=== PATIENT | female | born 1965 | race Caucasian/White ===

== ENCOUNTER 2019-02-09 12:41 | Day surgery (SDC) | payer BC ==
[2019-02-08 12:43] VITALS: BMI 24.6
[2019-02-09] MEDS ORDERED: ROPIVACAINE HCL 0.5% 30ML VIAL ONE (13:17)
[2019-02-09] MEDS ORDERED: MIDAZOLAM HCL 2 MG/2 ML SINGLE DOSE VIAL ONE ×2 (13:19)
--- NOTE | 2019-02-09 14:25 | HP ---
[facility]ellite [facility] - Chief Complaint Chief Complaint: right shoulder pain - Past Medical History Allergies/Adverse Reactions: Allergies Allergy/AdvReac Type Severity Reaction Status Date / Time Penicillins Allergy Rash Verified 02/08/19 12:35 ...LMP: 01/18/19 - Current Medications Current Medications: Home Medications Medication Instructions Recorded Hydrocodone/Acetaminophen 1 each PO Q6H #30 tablet MDD 4 02/09/19 [Hydrocodone-Acetamin 5-325 mg] Satellite Physical Exam - Physical Examination Vital Signs: Vital Signs Period Temp Pulse Resp BP Sys/Brown Pulse Ox Last 24 Hr 98.6 F-98.6 F 89-89 18-18 129-129/88-88 99 General Appearance: Well Nourished, Well Developed, Alert & Oriented x3 ENT: Clear Lung: Normal air movement Heart: Regular rate & rhythm Extremities: Other (right shoulder- + ttp, decr rom, + neer, + bearden, +obriens , nvi, MRI + labral tear, impingement) Neurological: Intact, Alert, Oriented Satellite Impression/Plan - Impression/Plan Impression: right shoulder impingement, labral tear Operative Procedure: right shoulder arthroscopy with labral repair, KAMLA IRVING Date to be Performed: 02/09/19
[2019-02-09] MEDS ORDERED: DESFLURANE GAS 240 ML BOTTLE IH ONE (15:17)
[2019-02-09] MEDS ORDERED: PROPOFOL 20 ML ONE (15:22)
[2019-02-09] MEDS ORDERED: CLINDAMYCIN PHOSPHATE 600 MG/4 ML VIAL ONE (15:32)
[2019-02-09] MEDS ORDERED: CLINDAMYCIN 600 MG PREMIX BAG IVPB ONE (15:36)
--- NOTE | 2019-02-09 16:19 | OP ---
Operative Note - Note: Operative Date: 02/09/19 ([facility]) Pre-Operative Diagnosis: right shoulder impingement, labral tear, adhesive capsulitis Operation: right shoulder arthroscopy with KAMLA IRVING Post-Operative Diagnosis: Same as Pre-op Surgeon: Pepito Zaman Car Hostler: Ankush Burr Anesthesiologist/PRECISION FARMING COORDINATOR: Charlotte Mathews Anesthesia: General, Local Specimens Removed: shavings Estimated Blood Loss (mls): 5 Operative Report Dictated: Yes
[2019-02-09] MEDS ORDERED: MEPERIDINE HCL 25 MG/ML VIAL IVPUSH ONE (16:41)
[2019-02-09] MEDS ORDERED: ONDANSETRON 4 MG/2 ML VIAL IVPUSH PRN (16:41)
[2019-02-09] MEDS ORDERED: oxyCODONE HCL 5 MG TABLET PO PRN (16:41)
[2019-02-09] MEDS ORDERED: LACTATED RINGERS SOLUTION 1,000 ML IV SCH (16:45)
[2019-02-09 18:48] VITALS: BP 131/78; PULSE 76; TEMP 97.6
--- NOTE | 2019-02-10 07:21 | OP ---
DATE OF OPERATION: 02/09/2019 SURGEON: Pam Nicholas MD NEUROPSYCHIATRIC AIDE: MARÍA Hargrove PREOPERATIVE DIAGNOSIS: Right shoulder adhesive capsulitis, impingement syndrome, possible rotator cuff tear, possible labral tear. POSTOPERATIVE DIAGNOSIS: Right shoulder subacromial impingement and adhesive capsulitis. PROCEDURE: Right shoulder arthroscopy, subacromial decompression and manipulation under anesthesia. DRAINS: None. COMPLICATIONS: None. SPECIMENS: Arthroscopic shavings. BLOOD LOSS: None. BLOOD GIVEN: None. FLUID REPLACEMENT: 500 mL. INDICATIONS: This patient is a 53-year-old female with a preoperative diagnosis of right shoulder impingement syndrome, adhesive capsulitis, possible labral tear, possible rotator cuff tear. After understanding the potential risks, complications, alternatives, and benefits of surgery versus nonsurgical treatment, the patient elected to undergo this procedure. DESCRIPTION OF PROCEDURE: The patient was brought to the operating room, peripheral IV placed, IV sedation given, 600 mg of clindamycin were given. Right interscalene block was performed. LMA anesthesia was induced. She was placed into the beach-chair position with ample padding throughout. I then did a manipulation under anesthesia. The patient was quite stiff. I could only forward flex her and abduct her to about 80 degrees. External rotation was perhaps 15 degrees. Internal rotation was to the center of the chest. I did a manipulation under anesthesia in all planes and could feel multiple releases in multiple planes, after which I could fully forward flex and abduct the arm to over 140 degrees. Internal and external rotation were excellent. Then, the right upper extremity was prepped and draped in a sterile fashion. The bony landmarks were marked out with a marking pen. The posterior portal was established. A diagnostic glenohumeral arthroscopy was performed. As expected, there was some blood inside the shoulder joint from the manipulation under anesthesia, and therefore, under direct visualization using a spinal needle, an anterior portal was established. A Green cannula was introduced and a shaver introduced to remove the bloody debris. I could then directly visualize that there was no labral tear. The area was probed extensively, and no labral tear was identified. The biceps anchor, the biceps tendon both looked good. The glenoid and the humeral head both looked good with no osteoarthritis. The undersurface of the rotator cuff looked good. Some torn capsule was debrided with a straight shaver, but otherwise inside the joint looked quite good. Next, our attention turned to the subacromial space. A lateral portal was established under direct visualization. A Green cannula was introduced into the subacromial space, and using an ArthroCare Wand, an extensive soft tissue debridement was done. After the subacromial and subdeltoid bursectomy, I could then visualize the top surface of the rotator cuff. It seemed to be intact with no tear. The patient had moderate-sized subacromial and small-sized sub distal clavicular spurs, both of which were taken down with a 5.5-mm oval luisana, fine-tuned in reverse, and then, the straight shaver was introduced to fine-tune and further remove all soft tissue and bony debris. I then put the arm through a full range of motion. There were no points of impingement. The top of the rotator cuff was again directly visualized, and no tears were seen. The area was copiously irrigated and washed out. All instrumentation and excess saline were removed. The arthroscopy portals were closed with 3-0 nylon sutures. The area was then washed and dried, covered with Aquacel dressing, and the patient was placed into a sling. Total operative time was about 35 minutes. There were no complications during the case. The patient tolerated the procedure quite well. PAM NICHOLAS M.D. [id number]
== END 2019-02-09 18:40 | disposition home or self-care (01) ==
LOC: JASU-SURG 12:41
PROVIDERS: ATTEND Orthopaedic Surgery
PROC: 0RNJ4ZZ Release Right Shoulder Joint, Percutaneous Endoscopic Approach (ICD-10-PCS; principal; 2019-02-09 14:30)
DX: M75.41 Impingement syndrome of right shoulder (principal); M75.01 Adhesive capsulitis of right shoulder
CPT/HCPCS: 84703

== ENCOUNTER 2019-05-19 04:50 | Day surgery (SDC) | payer BC ==
[2019-05-17 13:06] VITALS: BMI 23.3
[2019-05-19] MEDS ORDERED: ROPIVACAINE HCL 0.5% 30ML VIAL ONE (10:52)
[2019-05-19] MEDS ORDERED: DEXAMETHASONE SOD PHOSPHATE/PF 10 MG/ML SDV ONE (10:52)
[2019-05-19] MEDS ORDERED: MIDAZOLAM HCL 2 MG/2 ML SINGLE DOSE VIAL ONE ×2 (10:53)
--- NOTE | 2019-05-19 10:53 | HP ---
[facility] - Chief Complaint Chief Complaint: right shoulder stiffness - Past Medical History Allergies/Adverse Reactions: Allergies Allergy/AdvReac Type Severity Reaction Status Date / Time Penicillins Allergy Severe Rash, Verified 05/19/19 10:22 dyspnea ...LMP: 05/10/19 ...LMP Comment: heavy - Current Medications Current Medications: Home Medications Medication Instructions Recorded Acetaminophen 650 mg PO PRN PRN 05/17/19 Ibuprofen [Motrin -] 400 mg PO PRN PRN 05/17/19 Hydrocodone/Acetaminophen 1 each PO Q6H #10 tablet MDD 4 05/19/19 [Hydrocodone-Acetamin 5-325 mg] Satellite Physical Exam - Physical Examination Vital Signs: Vital Signs Period Temp Pulse Resp BP Sys/Brown Pulse Ox Last 24 Hr 98.0 F 76 20 112/76 100 General Appearance: Well Nourished, Well Developed, Alert & Oriented x3 ENT: Clear Lung: Normal air movement Heart: Regular rate & rhythm Extremities: Other (right shoulder- + stiffness, + ttp, decr rom ,nvi) Neurological: Intact, Alert, Oriented Satellite Impression/Plan - Impression/Plan Impression: right shoulder adhesive capsulitis Operative Procedure: right shoulder manipulation under anesthesia Date to be Performed: 05/19/19
--- NOTE | 2019-05-19 11:37 | OP ---
Operative Note - Note: Operative Date: 05/19/19 ([facility]) Pre-Operative Diagnosis: right shoulder adhesive capsulitis Operation: right shoulder manipulation under anesthesia Post-Operative Diagnosis: Same as Pre-op Surgeon: Pepito Zaman Anesthesiologist/LINTER DRIER OPERATOR: Dwight Rodriguez Anesthesia: General
[2019-05-19] MEDS ORDERED: oxyCODONE HCL 5 MG TABLET PO PRN (12:34)
[2019-05-19] MEDS ORDERED: ACETAMINOPHEN 325 MG TABLET (FP) PO PRN (12:34)
[2019-05-19 12:46] VITALS: TEMP 97.8
[2019-05-19 14:09] VITALS: BP 116/73; PULSE 71
--- NOTE | 2019-05-20 08:48 | OP ---
DATE OF OPERATION: 05/19/2019 PREOPERATIVE DIAGNOSIS: Right shoulder adhesive capsulitis/frozen shoulder. POSTOPERATIVE DIAGNOSIS: Right shoulder adhesive capsulitis/frozen shoulder. PROCEDURE: Right shoulder manipulation under anesthesia. SURGEON: Pam Nicholas MD ASSISTANTS: None. ANESTHESIA: NOE Ahmadi and BRIDGETTE Traore-SANTOS; right interscalene block with LMA anesthesia. DRAINS: None. COMPLICATIONS: None. SPECIMEN: None. BLOOD LOSS: None. BLOOD GIVEN: None. FLUID REPLACEMENT: Plasma-Lyte 500 mL. INDICATION: This patient is a 53-year-old female who has developed a right frozen shoulder/adhesive capsulitis. After understanding the potential risks, complications, alternatives and benefits of surgery versus nonsurgical treatment she elected to undergo this procedure. We had decided preoperatively that no matter what we would do a manipulation under anesthesia and not do any kind of open procedure. DESCRIPTION OF PROCEDURE: The patient was brought to the operating room, peripheral IV placed and IV sedation given. A right interscalene block was performed. LMA anesthesia was induced. She was relaxed. She was placed into the beach-chair position. She was not prepped or draped. First starting with forward flexion I was only able to actively forward flex her to 85 degrees. I then by the end of the manipulation was able to stretch her to over 160 degrees. As far as abduction was concerned this was the biggest gain during the manipulation. Before the manipulation I could only abduct her approximately 70 degrees. After the manipulation during which I was able to feel some tearing through some scar tissue I was able to get her above 140 degrees. External rotation was practically zero degrees before the manipulation; afterwards was about 70 degrees, also a huge gain. Internal rotation was improved as was cross-arm abduction. I was able to feel the tearing and stretching of some scar tissue of the posterior capsule. Multiple manipulations were done. I was very careful throughout to stabilize the scapula. There were no fast harsh motions. Overall by the end range of motion was reestablished to be full. The patient was placed into a sling only, extubated. There was no incision. Total manipulation time was about 15 minutes. There were no complications during the case. Patient tolerated the procedure well and was brought to the ambulatory recovery room in stable condition. PAM NICHOLAS M.D. [id number]
== END 2019-05-19 14:00 | disposition home or self-care (01) ==
LOC: JASU-SURG 04:50
PROVIDERS: ATTEND Orthopaedic Surgery
PROC: 0RNJXZZ Release Right Shoulder Joint, External Approach (ICD-10-PCS; principal; 2019-05-19 11:30)
DX: M75.01 Adhesive capsulitis of right shoulder (principal); Z88.0 Allergy status to penicillin
CPT/HCPCS: 84703